=== PATIENT | male | born 1975 | race Hispanic/Latino ===

== ENCOUNTER 2018-11-27 00:05 | Observation (INO) | payer SELFPAY ==
[2018-11-27 01:09] LABS: Mean Corpuscular HGB CONC 33.2 g/dL (32.0-36.0); Mean Corpuscular Hemoglobin 33.1 pg (27.0-31.0); Mean Corpuscular Volume 99.9 fL (78.0-98.0); Mean Platelet Volume 7.6 fL (7.4-10.4); Platelet Count 170 thou/uL (130-400); RBC Distribution Width 12.5 % (11.5-14.5); Red Blood Cell (RBC) Count 5.13 mill/uL (4.70-6.10); White Blood Cell (WBC) Count 4.5 thou/uL (4.8-10.8)
[2018-11-27 01:23] LABS: ALT (SGPT) 134 U/L (8-55); AST (SGOT) 115 U/L (5-34); Albumin 4.2 g/dL (3.5-5.0); Alcohol 384 mg/dL (Less than 10); Alkaline Phosphatase 119 U/L (40-150); Anion Gap 18 mmol/L (10-20); BUN (Urea Nitrogen) 7 mg/dL (8.9-20.6); Band 6 % (5-11); Bilirubin, Total 0.4 mg/dL (0.2-1.2); Calc. Creatinine Clearance 0 mL/min (70-130); Calcium 8.5 mg/dL (7.8-10.44); Carbon Dioxide 21 mmol/L (22-29); Chloride 103 mmol/L (98-107); Eosinophils 2 % (0-10); Estimated GFR-MDRD Greater than 90; Globulin 3.8 g/dL (2.4-3.5); Glucose 131 mg/dL (70-105); Lipase 41 U/L (8-78); Lymphocytes 40 % (21-51); MDiff Complete? YES; Monocytes 14 % (0-10); Neutrophil 36 % (42-75); Potassium 3.5 mmol/L (3.5-5.1); Sodium 138 mmol/L (136-145)
[2018-11-27] MEDS ORDERED: Ampicillin/Sulbactam 3 GM in Sodium Chloride 0.9% 100 ML IVPB ONE (03:30)
[2018-11-27] MEDS ORDERED: traMADol HCl 50 MG TAB PO PRN ×2 (03:36)
[2018-11-27] MEDS ORDERED: Sodium Chloride 0.9% 1,000 ML IV SCH (03:36)
[2018-11-27] MEDS ORDERED: Dextrose 50% Abboject 50 ML SYRINGE SLOW IVP PRN (03:36)
[2018-11-27] MEDS ORDERED: Ondansetron PF 4 MG/2 ML Vial IVP PRN (03:36)
[2018-11-27] MEDS ORDERED: hydrALAZINE 20 MG/ML VIAL SLOW IVP PRN (03:36)
[2018-11-27] MEDS ORDERED: Ondansetron ODT 4 MG TAB PO PRN (03:36)
[2018-11-27] MEDS ORDERED: Dextrose 5% in Water 1,000 ML IV PRN (03:36)
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
[2018-11-27] MEDS ORDERED: Acetaminophen 500 MG TAB PO SCH (06:00)
[2018-11-27] MEDS ORDERED: Oxazepam 10 MG CAP PO SCH (06:00)
--- NOTE | 2018-11-27 06:38 | CT ---
CT OF THE BRAIN WITHOUT CONTRAST: INDICATION: History of pneumocephalus; followup examination. COMPARISON: Prior CT of the brain without contrast dated 11/27/2018 at 1:[address] of the face dated 019 at 12:58 a.m. FINDINGS: Again seen is a small collection of gas overlying the anterior and inferior aspect of the left fronta l lobe. Small collection underlying the inferior aspect of the anterior left frontal lobe has somewh at dissipated. No extraaxial hemorrhage is grossly evident. No midline shift is evident. Again see n is a cavum septum pellucidum. Mastoid air cells remain clear. Multiple air fluid levels within th e ethmoid air cells and maxillary sinuses remain. Small suspected nondisplaced fractures involving t he left frontal sinus and left superior orbital wall are partially seen on the bone windows. There i s also suspected fracture involving the left aspect of the more superior ethmoid air cells extending possibly into the left aspect of the cribriform plate on the CT of the face on images 30 through 27 o f the coronal series. IMPRESSION: Persistent pneumocephalus overlying the left anterior frontal lobe. No interval development of extra axial hemorrhage. The small locules of gas underlying the anterior and inferior aspect of the left f rontal lobe have somewhat dissipated. Persistent fracture lucencies involving the left superior orbi bienvenido roof as well as portions of the left frontal sinus and anterior left ethmoid air cells. POS: [facility]
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
[2018-11-27] MEDS ORDERED: Amoxicillin/Potassium Clav 875 MG TAB ONE (08:46)
[2018-11-27] MEDS ORDERED: Famotidine 20 MG TAB ONE (08:46)
[2018-11-27] MEDS ORDERED: Folic Acid 1 MG TAB ONE (08:46)
[2018-11-27] MEDS ORDERED: Amoxicillin/Potassium Clav 875 MG TAB PO SCH (09:00)
[2018-11-27] MEDS ORDERED: Folic Acid 1 MG TAB PO SCH (09:00)
[2018-11-27] MEDS ORDERED: Famotidine 20 MG TAB PO SCH (09:00)
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
== END 2018-11-27 15:57 | disposition home or self-care (01) ==
LOC: ERS 00:05 → ERHOLD 02:34
PROVIDERS: ADMIT Specialist; ATTEND Specialist
DX: S02.82XA Fracture of other specified skull and facial bones, left side, initial encounter for closed fracture (principal); S02.19XA Other fracture of base of skull, initial encounter for closed fracture; F10.129 Alcohol abuse with intoxication, unspecified; R41.82 Altered mental status, unspecified; G93.89 Other specified disorders of brain; Y90.8 Blood alcohol level of 240 mg/100 ml or more; Y04.2XXA Assault by strike against or bumped into by another person, initial encounter; Y92.59 Other trade areas as the place of occurrence of the external cause
CPT/HCPCS: 36415; 70450; 70486; 71045; 72125; 80053; 80307; 83690; 85025; 96361; 96365; G0378; G0390; J0295; J7050